=== PATIENT | male | born 1960 | race Two or more races ===

== ENCOUNTER → 2024-10-30 | Outpatient (BNVA) | payer MEDICAID, SELFPAY | END | disposition home or self-care (01) | PROVIDERS: PCP Nurse Practitioner Family; Referring Provider Nurse Practitioner Family; Visit Provider Urology | DX: N40.1 Benign prostatic hyperplasia with lower urinary tract symptoms (principal); N13.8 Other obstructive and reflux uropathy; R35.0 Frequency of micturition; R39.198 Other difficulties with micturition; E11.9 Type 2 diabetes mellitus without complications; I10 Essential (primary) hypertension; E66.9 Obesity, unspecified; Z68.27 Body mass index [BMI] 27.0-27.9, adult; E78.00 Pure hypercholesterolemia, unspecified; Z87.891 Personal history of nicotine dependence | CPT/HCPCS: 81003; 99212; G0463 ==

== ENCOUNTER → 2024-12-25 | Outpatient (BNVA) | payer MEDICARE, MEDICAID, SELFPAY | END | disposition home or self-care (01) | PROVIDERS: PCP Nurse Practitioner Family; Referring Provider Nurse Practitioner Family; Visit Provider Urology | DX: N40.1 Benign prostatic hyperplasia with lower urinary tract symptoms (principal); R39.12 Poor urinary stream; I10 Essential (primary) hypertension; E78.00 Pure hypercholesterolemia, unspecified; E11.9 Type 2 diabetes mellitus without complications | CPT/HCPCS: 51741; 51798 ==

== ENCOUNTER 2025-01-11 00:35 | Emergency (ER) | payer MEDICARE, MEDICAID, SELFPAY ==
[2025-01-11 00:36] VITALS: BMI 25.8
[2025-01-11 00:56] VITALS: BP 139/82; PULSE 100; RESP 17; TEMP 36.6; O2SAT 96
--- NOTE | 2025-01-11 02:46 | EDNOTE_ITS ---
<Statement entered by Juliana Stockton MD - 03/20/25 19:08> As co-signing physician, I was present and available for consult prn. I concur with the plan and care as documented by the midlevel provider. ED General RME/HPI General Chief complaint: General Adult/Misc Complain Stated complaint: POSSIBLE SPIDER BITE TO BACK Time Seen by Provider: 01/11/25 02:35 Arrival date/time: 01/11/25 00:35 RME / HPI RME / HPI narrative: 64-year-old male presents to the ED with a complaint of right flank possible spider bite. He woke up at 9:00 this morning and had pain and noticed a small bite wound with redness extending anteriorly. He denies any fever or chills, nausea or vomiting. Related Data Home Medications ?Medication ?Instructions ?Recorded ?Confirmed atorvastatin 40 mg tablet 40 mg PO QDAY 10/21/2001/23 omeprazole 20 mg capsule,delayed 20 mg PO QDAY 1 01/23/25 release tamsulosin 0.4 mg capsule 0.4 mg PO DAILY 10/21/20 amlodipine 10 mg tablet 10 mg PO DAILY 07/02/2401/08 glipizide 5 mg tablet 5 mg PO BID 10/30/24 5 lisinopril 40 mg tablet 40 mg PO QDAY 10/30/2401/23 metformin 1,000 mg tablet 1,000 mg PO BID 10/30/24 sitagliptin phosphate 50 1 tab PO BID 10/30/24 mg-metformin 1,000 mg tablet (Zhengumesebastian) Previous Rx's ?Medication ?Instructions ?Recorded blood sugar diagnostic (Contour #50 ea 07/02/24 Next Test Strips) blood-glucose meter (Easy-Touch #1 ea 07/02/24 Blood Glucose Meter) lancets (Accu-Chek Softclix #100 ea 07/02/24 Lancets) metronidazole 500 mg tablet 500 mg PO TID #36 tabs semaglutide 0.25 mg or 0.5 mg (2 0.25 mg (0.368 mL) clark bcut QWEEK #3 07/02/24 mg/3 mL) subcutaneous pen injector mL (Ozempic) Allergies Allergy/AdvReac Type Severity Reaction Status Date / Time No Known Allergies Allergy Verified 01/23/25 15:20 Review of Systems Review of Systems Systems Reviewed: All systems reviewed, normal except as documented Past Medical History Past Medical History CARDIAC: Positive Hypercholesterolemia and Hypertension; Negative Cardiac Disorders or Congestive Heart Failure RESPIRATORY: Negative Chronic Obstructive Pulmonary Disease (COPD) or Asthma GENITOURINARY: Negative Renal Disease ENDOCRINE: Positive Diabetes Mellitus Type 2; Negative Diabetes Mellitus Type 1 HEMATOLOGIC: Negative Sickle Cell Disease Surgical History SURGICAL: Positive Abdominal Surgery (laparotomy) Social History SMOKING STATUS: Former smoker ED Exam Narrative Physical exam: Alert and oriented 64 year old male, no acute distress. Non-toxic and afebrile. Lungs are clear. RRR. Abdomen is soft non-tender. Moves all extremities well. Erythema, warmth and tenderness noted to right flank without lesions noted. Course Course Course Narrative: No meds given or diagnostic studies obtained. Quality Measures none Vital Signs Vital signs: Vital Signs Temperature 97.9 F 01/11/25 00:56 Pulse Rate 100 01/11/25 00:56 Respiratory Rate 17 01/11/25 00:56 Blood Pressure 139/82 H 01/11/25 00:56 Pulse Oximetry (%) 96 01/11/25 00:56 Oxygen Delivery Method Room Air 01/11/25 00:56 Discharge Plan Plan Patient Disposition: HOME (Self Care) Discharge Disposition comment: Stable Prescriptions/Referrals Prescriptions/Med Rec: No Action omeprazole 20 mg capsule,delayed release(DR/EC) 20 mg PO QDAY tamsulosin 0.4 mg capsule 0.4 mg PO DAILY atorvastatin 40 mg tablet 40 mg PO QDAY lisinopril 40 mg tablet 40 mg PO QDAY metformin 1,000 mg tablet 1,000 mg PO BID glipizide 5 mg tablet 5 mg PO BID Janumet 50-1,000 mg tablet 1 tab PO BID amlodipine 10 mg tablet 10 mg PO DAILY Patient Comments: TAKE 1 TABLET BY MOUTH ONCE DAILY Ozempic 0.25 mg or 0.5 mg (2 mg/3 mL) pen injector 0.25 mg subcut QWEEK Qty: 3 2RF Rx Instructions: for 4 weeks metronidazole 500 mg tablet 500 mg PO TID Qty: 36 0RF (DME) blood-glucose meter [Easy-Touch Blood Glucose Meter] Misc See Rx Instructions .Route Qty: 1 0RF Rx Instructions: As directed (DME) lancets [Accu-Chek Softclix Lancets] Misc See Rx Instructions .Route Qty: 100 0RF Rx Instructions: As directed (DME) Contour Next Test Strips Strip See Rx Instructions .Route Qty: 50 2RF Rx Instructions: As directed Problem List Clinical Impression: Cellulitis Patient/Caregiver Discharge Instructions Education Materials: ED Cellulitis Additional Instructions: Follow-up with your primary care physician in 24 to 48 hours. Return to the ED for any new or worsening symptoms. Print Language: Maori Stand Alone Forms: [employer] Award Info., Patient Portal Info Letter PA/LINE INSTALLER TROLLEY Supervising Physician PA/LINE INSTALLER TROLLEY Supervising Physician: Dr. Stockton MDM Narrative MDM hospital course (for use when minimal MDM required): 64-year-old male presents to the ED with a complaint of right flank possible spider bite. He woke up at 9:00 this morning and had pain and noticed a small bite wound with redness extending anteriorly. He denies any fever or chills, nausea or vomiting. Alert and oriented 64 year old male, no acute distress. Non-toxic and afebrile. Lungs are clear. RRR. Abdomen is soft non-tender. Moves all extremities well. Erythema, warmth and tenderness noted to right flank without lesions noted. No meds given or diagnostic studies obtained. Sangeeta was prescribed antibiotics and instructed to follow-up with his PCP. If worse, return to the ED.
== END 2025-01-11 03:21 | disposition home or self-care (01) ==
LOC: SERX 03:13
PROVIDERS: Emergency Provider Emergency Medicine; PCP Physician Assistant
DX: L03.312 Cellulitis of back [any part except buttock and flank] (principal)
CPT/HCPCS: 99281

== ENCOUNTER → 2025-01-23 | Outpatient (BNVA) | payer MEDICARE, MEDICAID, SELFPAY | END | disposition home or self-care (01) | PROVIDERS: PCP Nurse Practitioner Family; Referring Provider Nurse Practitioner Family; Visit Provider Urology | DX: N40.1 Benign prostatic hyperplasia with lower urinary tract symptoms (principal); N13.8 Other obstructive and reflux uropathy; R39.198 Other difficulties with micturition; I10 Essential (primary) hypertension; E78.00 Pure hypercholesterolemia, unspecified; E11.9 Type 2 diabetes mellitus without complications; Z87.891 Personal history of nicotine dependence | CPT/HCPCS: 76872 ==

== ENCOUNTER → 2025-03-27 | Outpatient (BNVA) | payer MEDICARE, MEDICAID, SELFPAY | END | disposition home or self-care (01) | PROVIDERS: PCP Nurse Practitioner Family; Referring Provider Nurse Practitioner Family; Visit Provider Urology | DX: N32.89 Other specified disorders of bladder (principal); N40.1 Benign prostatic hyperplasia with lower urinary tract symptoms; N13.8 Other obstructive and reflux uropathy; E66.9 Obesity, unspecified; Z68.25 Body mass index [BMI] 25.0-25.9, adult; I10 Essential (primary) hypertension; E78.00 Pure hypercholesterolemia, unspecified; E11.9 Type 2 diabetes mellitus without complications | CPT/HCPCS: 52000; 81003; 96372; A4217; A4649; C1894; J3260; A9270 ==